=== PATIENT | male | born 1980 | race Caucasian/White ===

== ENCOUNTER 2017-10-05 09:10 | Emergency (ER) | payer OTHER ==
[~2017-10-05] VITALS: Ht 185.4 cm; Wt 118.0 kg
[~2017-10-05 09:10] MED LIST: AMOXICILLIN500 MG PO; BACTRIM DS1 TAB PO; CEPHALEXIN500 MG PO; DARVOCET N-100100 - OR; DOXYCYCL HYC100 MG PO; FLEXERIL PO; HYDROXYZ HCL25 MG PO; KEFLEX500 MG PO; LORTAB 5-325 MG1 TAB PO; MEDDOSEPAK PO; MEDROL4 M1 OR; NAPROSYN500 MG PO; NO HOME MEDS; NORCO1 TA1 PO; SILVADENE1 % EX; TRAMADOL HCL50 MG PO; ULTRAM50 M1 PO
[2017-10-05] MEDS ORDERED: TORADOL PO (11:01)
[2017-10-05 11:05] VITALS: BP 139/84
== END 2017-10-05 11:05 | disposition home or self-care (01) | DRG 605 ==
LOC: ED 09:10
DX: S00.532A Contusion of oral cavity, initial encounter (principal); F17.210 Nicotine dependence, cigarettes, uncomplicated; W20.8XXA Other cause of strike by thrown, projected or falling object, initial encounter; Y93.H2 Activity, gardening and landscaping

== ENCOUNTER 2018-06-16 14:57 | Emergency (ER) | payer SELFPAY ==
[~2018-06-16] VITALS: Ht 185.4 cm; Wt 91.0 kg
[~2018-06-16 14:57] MED LIST changes: +TORADOL PO
[2018-06-16] MEDS ORDERED: BACTROBAN TOP (16:13)
[2018-06-16 16:20] VITALS: BP 140/88
== END 2018-06-16 16:20 | disposition home or self-care (01) | DRG 603 ==
LOC: ED 14:57
DX: L02.11 Cutaneous abscess of neck (principal)

== ENCOUNTER 2018-07-08 12:17 | Emergency (ER) | payer SELFPAY ==
[~2018-07-08] VITALS: Ht 185.4 cm; Wt 90.0 kg
[~2018-07-08 12:17] MED LIST changes: +BACTROBAN TOP
[2018-07-08] MEDS ORDERED: MOTRIN400 MG PO (12:41)
[2018-07-08] MEDS ORDERED: PENICILLN VK500 M1 PO (12:41)
[2018-07-08 13:01] VITALS: BP 153/104
== END 2018-07-08 13:10 | disposition home or self-care (01) | DRG 159 ==
LOC: ED 12:17
DX: K08.89 Other specified disorders of teeth and supporting structures (principal)

== ENCOUNTER 2018-09-01 07:36 | Emergency (ER) | payer SELFPAY ==
[~2018-09-01] VITALS: Ht 185.4 cm; Wt 100.0 kg
[~2018-09-01 07:36] MED LIST changes: +MOTRIN400 MG PO; +PENICILLN VK500 M1 PO
[2018-09-01] MEDS ORDERED: BACTRIM DS1 TAB PO (09:29)
[2018-09-01] MEDS ORDERED: FLOXIN OTIC0.3 % AS (09:29)
[2018-09-01] MEDS ORDERED: CEPHALEXIN500 M1 PO (09:29)
[2018-09-01 10:03] VITALS: BP 124/90
== END 2018-09-01 10:04 | disposition home or self-care (01) | DRG 155 ==
LOC: ED 07:36
PROC: 0H91XZZ Drainage of Face Skin, External Approach (ICD-10-PCS; principal; 2018-09-01)
DX: H60.92 Unspecified otitis externa, left ear (principal); K12.2 Cellulitis and abscess of mouth; F17.210 Nicotine dependence, cigarettes, uncomplicated

== ENCOUNTER 2018-09-03 09:32 | Emergency (ER) | payer SELFPAY ==
[~2018-09-03] VITALS: Ht 185.4 cm; Wt 85.0 kg
[~2018-09-03 09:32] MED LIST changes: +CEPHALEXIN500 M1 PO; +FLOXIN OTIC0.3 % AS
[2018-09-03 10:45] VITALS: BP 132/89
[2018-09-05] MEDS ORDERED: NEOMYCIN/POLYMY1 SOL AS (11:51)
== END 2018-09-03 10:45 | disposition left against medical advice (07) | DRG 951 ==
LOC: ED 09:32
DX: Z91.19 Patient's noncompliance with other medical treatment and regimen (principal)

== ENCOUNTER 2019-01-29 19:27 | Emergency (ER) | payer OTHER ==
[~2019-01-29] VITALS: Ht 185.4 cm; Wt 86.0 kg
[~2019-01-29 19:27] MED LIST changes: +NEOMYCIN/POLYMY1 SOL AS
[2019-01-29] MEDS ORDERED: SILVADENE1 % EX (19:50)
[2019-01-29 20:02] VITALS: BP 140/82
[2019-01-30] MEDS ORDERED: SILVADENE1 % EX (14:39)
== END 2019-01-29 20:02 | disposition home or self-care (01) ==
LOC: ED 19:27
DX: T22.041A Burn of unspecified degree of right axilla, initial encounter (principal); F17.210 Nicotine dependence, cigarettes, uncomplicated; W39.XXXA Discharge of firework, initial encounter; Y93.89 Activity, other specified; Y92.009 Unspecified place in unspecified non-institutional (private) residence as the place of occurrence of the external cause

== ENCOUNTER 2019-02-24 16:53 | Emergency (ER) | payer OTHER ==
[~2019-02-24] VITALS: Ht 185.4 cm; Wt 86.4 kg
[2019-02-24 17:48] LABS: IMMATURE GRANULOCYTES 0.2 % (0.0-5.0); MEAN CELL VOLUME 88.6 fL CALC (80.0-100.0); MEAN CORPUSCULAR HGB 29.6 pG CALC (26.0-32.0); MEAN CORPUSCULAR HGB CONC 33.4 g/L CALC (32.0-36.0); NEUT# 5.61 thou/uL (1.82-7.42); RED BLOOD COUNT 5.17 mill/uL (4.70-6.10); RED CELL DISTRI WIDTH 13.4 % (11.5-15.5)
[2019-02-24 17:51] LABS: HEMATOCRIT 45.8 % (39.0-50.0); HEMOGLOBIN 15.3 g/dl (14.0-18.0)
[2019-02-24 18:02] LABS: ALKALINE PHOSPHATASE 102 u/l (38-126); BUN 19 mg/dL (9-20); BUN/CREATININE RATIO 16 (12-20 (CALC)); CHLORIDE 103 mmol/l (95-108); CREATININE 1.1 mg/dL (0.7-1.3); GFR > 60 ML/MIN (>=60 (CALC)); GFR FOR AFR.AMER. > 60 ML/MIN (>=60 (CALC)); LIPASE 28 u/l (23-300); SGOT/AST 19 u/l (17-59); SODIUM 138 mmol/l (137-146)
[2019-02-24 18:13] LABS: ALBUMIN 4.8 g/dL (3.2-5.0); ANION GAP 14 (6-22 (CALC)); BILIRUBIN, TOTAL 0.8 mg/dL (0.0-1.4); CARBON DIOXIDE 25 mmol/l (22-30); TOTAL PROTEIN 7.8 g/dL (6.3-8.2)
[2019-02-24 18:32] LABS: URINE BLOOD DIPSTICK TRACE-INTACT (NEGATIVE); URINE COLOR YELLOW; URINE GLUCOSE - DIPSTICK NEGATIVE (NEGATIVE); URINE KETONE TRACE mg/dL (NEGATIVE); URINE LEUK ESTERASE NEGATIVE (NEGATIVE); URINE NITRITE - DIPSTICK NEGATIVE (Negative); URINE PH 5.5 (4.5-8.0); URINE PROTEIN - DIPSTICK 30 mg/dL (NEG-TRACE); URINE SPECIFIC GRAVITY 1.025; URINE UROBILINOGEN - DIPSTICK 0.2 E.U./dL (0.2)
[2019-02-24 18:37] LABS: URINE BILIRUBIN - DIPSTICK NEGATIVE (NEGATIVE)
[2019-02-24 18:43] LABS: URINE RBC 0-2 RBC/hpf (0-5)
[2019-02-24 18:49] VITALS: BP 144/88
[2019-02-24] MEDS ORDERED: ONDANSETRON4 MG PO (18:49)
[2019-02-24] MEDS ORDERED: PREDNISONE50 MG PO (18:49)
== END 2019-02-24 18:57 | disposition home or self-care (01) ==
LOC: ED 16:53
PROVIDERS: Family Medicine
DX: K52.9 Noninfective gastroenteritis and colitis, unspecified (principal); R11.2 Nausea with vomiting, unspecified; T78.40XA Allergy, unspecified, initial encounter; R21 Rash and other nonspecific skin eruption; F17.210 Nicotine dependence, cigarettes, uncomplicated; R06.2 Wheezing

== ENCOUNTER 2019-03-26 12:20 | Emergency (ER) | payer OTHER ==
[~2019-03-26] VITALS: Ht 185.4 cm; Wt 90.9 kg
[~2019-03-26 12:20] MED LIST changes: +ONDANSETRON4 MG PO; +PREDNISONE50 MG PO
[2019-03-26 12:27] VITALS: BP 140/91
== END 2019-03-26 13:40 | disposition left against medical advice (07) ==
LOC: ED 12:20
DX: Z91.19 Patient's noncompliance with other medical treatment and regimen (principal)

== ENCOUNTER 2019-05-07 15:32 | Emergency (ER) | payer BC, OTHER ==
[~2019-05-07] VITALS: Ht 185.4 cm; Wt 95.0 kg
[2019-05-07] MEDS ORDERED: CEPHALEXIN500 M1 PO (16:58)
[2019-05-07] MEDS ORDERED: MUPIROCIN21 TOP (17:07)
[2019-05-07 17:16] VITALS: BP 137/91
== END 2019-05-07 17:25 | disposition home or self-care (01) | DRG 607 ==
LOC: ED 15:32
PROC: 0HBRXZZ Excision of Toe Nail, External Approach (ICD-10-PCS; principal; 2019-05-07)
DX: L60.0 Ingrowing nail (principal); F17.210 Nicotine dependence, cigarettes, uncomplicated

== ENCOUNTER 2019-06-04 17:31 | Emergency (ER) | payer BC, OTHER ==
[~2019-06-04] VITALS: Ht 185.4 cm; Wt 81.0 kg
[~2019-06-04 17:31] MED LIST changes: +MUPIROCIN21 TOP
[2019-06-04] MEDS ORDERED: NEXIUM5 MG PO (17:40)
[2019-06-04] MEDS ORDERED: AMOX/K CLAV875 M1 PO (18:14)
[2019-06-04 18:40] LABS: URINE BILIRUBIN - DIPSTICK NEGATIVE (NEGATIVE); URINE BLOOD DIPSTICK MODERATE (NEGATIVE); URINE COLOR YELLOW; URINE GLUCOSE - DIPSTICK NEGATIVE (NEGATIVE); URINE KETONE NEGATIVE (NEGATIVE); URINE NITRITE - DIPSTICK NEGATIVE (Negative); URINE PH 5.5 (4.5-8.0); URINE PROTEIN - DIPSTICK TRACE mg/dL (NEG-TRACE); URINE SPECIFIC GRAVITY >=1.030
[2019-06-04 18:50] LABS: URINE LEUK ESTERASE SMALL (NEGATIVE)
[2019-06-04] MEDS ORDERED: CEPHALEXIN500 M1 PO (18:52)
[2019-06-04 18:54] LABS: URINE WBC 50-100 WBC/hpf (0-5)
[2019-06-04 19:15] LABS: HEMATOCRIT 40.7 % (39.0-50.0); HEMOGLOBIN 13.4 g/dl (14.0-18.0); IMMATURE GRANULOCYTES 0.3 % (0.0-5.0); MEAN CELL VOLUME 88.5 fL CALC (80.0-100.0); MEAN CORPUSCULAR HGB 29.1 pG CALC (26.0-32.0); MEAN CORPUSCULAR HGB CONC 32.9 g/L CALC (32.0-36.0); NEUT# 7.55 thou/uL (1.82-7.42); RED BLOOD COUNT 4.6 mill/uL (4.70-6.10); RED CELL DISTRI WIDTH 13.1 % (11.5-15.5)
[2019-06-04 19:34] LABS: ANION GAP 13 (6-22 (CALC)); BUN 14 mg/dL (9-20); BUN/CREATININE RATIO 14 (12-20 (CALC)); CARBON DIOXIDE 24 mmol/l (22-30); CHLORIDE 104 mmol/l (95-108); GFR > 60 ML/MIN (>=60 (CALC)); GFR FOR AFR.AMER. > 60 ML/MIN (>=60 (CALC)); POTASSIUM 4.3 mmol/l (3.5-5.1); SODIUM 137 mmol/l (137-146)
[2019-06-04 21:26] VITALS: BP 153/77
== END 2019-06-04 21:26 | disposition home or self-care (01) | DRG 153 ==
LOC: ED 17:31
PROVIDERS: Family Medicine
DX: H66.92 Otitis media, unspecified, left ear (principal); N50.812 Left testicular pain

== ENCOUNTER 2019-08-15 | Emergency (ER) | payer BC, OTHER ==
[~2019-08-15] MED LIST changes: +AMOX/K CLAV875 M1 PO; +NEXIUM5 MG PO
[2019-08-15] MEDS ORDERED: PREDNISONE10 MG PO (10:26)
[2019-08-15] MEDS ORDERED: ARNUITY EL50 MCG/ACT IN (10:27)
[2019-08-15] MEDS ORDERED: IBUPROFEN600 MG PO (11:22)
== END 2019-08-15 11:35 | disposition home or self-care (01) | DRG 563 ==
DX: S93.402A Sprain of unspecified ligament of left ankle, initial encounter (principal); F17.210 Nicotine dependence, cigarettes, uncomplicated; W01.0XXA Fall on same level from slipping, tripping and stumbling without subsequent striking against object, initial encounter; Y93.89 Activity, other specified; Y92.89 Other specified places as the place of occurrence of the external cause; Y99.0 Civilian activity done for income or pay

== ENCOUNTER 2019-09-07 | Emergency (ER) | payer BC, OTHER ==
[~2019-09-07] MED LIST changes: +ARNUITY EL50 MCG/ACT IN; +IBUPROFEN600 MG PO; +PREDNISONE10 MG PO
== END 2019-09-07 17:20 | disposition home or self-care (01) | DRG 563 ==
DX: S93.402A Sprain of unspecified ligament of left ankle, initial encounter (principal); F17.210 Nicotine dependence, cigarettes, uncomplicated; X58.XXXA Exposure to other specified factors, initial encounter; Y93.89 Activity, other specified; Y92.89 Other specified places as the place of occurrence of the external cause; Y99.0 Civilian activity done for income or pay

== ENCOUNTER 2019-10-21 | Emergency (ER) | payer OTHER ==
[2019-10-21] MEDS ORDERED: HYDROCO/APAP1 TA9 PO (19:44)
[2019-10-21] MEDS ORDERED: CLINDAMYCIN300 M1 PO (19:44)
== END 2019-10-21 20:00 | disposition home or self-care (01) ==
DX: K04.7 Periapical abscess without sinus (principal); K02.9 Dental caries, unspecified; F17.200 Nicotine dependence, unspecified, uncomplicated

== ENCOUNTER 2019-12-30 16:37 | Emergency (ER) | payer OTHER ==
[~2019-12-30 16:37] MED LIST changes: +CLINDAMYCIN300 M1 PO; +HYDROCO/APAP1 TA9 PO
[2019-12-30 18:10] LABS: IMMATURE GRANULOCYTES 0.3 % (0.0-5.0); MEAN CELL VOLUME 85.6 fL CALC (80.0-100.0); MEAN CORPUSCULAR HGB 29.3 pG CALC (26.0-32.0); MEAN CORPUSCULAR HGB CONC 34.2 g/dL CAL (32.0-36.0); NEUT# 7.29 thou/uL (1.82-7.42); RED BLOOD COUNT 5.7 mill/uL (4.70-6.10)
[2019-12-30 18:12] LABS: HEMATOCRIT 48.8 % (39.0-50.0); HEMOGLOBIN 16.7 g/dl (14.0-18.0)
[2019-12-30 18:30] LABS: ACT PARTIAL THROMBO TIME 31.5 SECONDS (20.0-32.5); ALKALINE PHOSPHATASE 98 u/l (38-126); AMYLASE 129 u/l (30-110); ANION GAP 14 (6-22 (CALC)); BILIRUBIN, TOTAL 0.8 mg/dL (0.0-1.4); BUN 15 mg/dL (9-20); BUN/CREATININE RATIO 12 (12-20 (CALC)); CARBON DIOXIDE 24 mmol/l (22-30); CHLORIDE 103 mmol/l (95-108); CREATININE 1.2 mg/dL (0.7-1.3); D-DIMER 0.17 mg/L (0.19-0.60); GFR > 60 ML/MIN (>=60 (CALC)); GFR FOR AFR.AMER. > 60 ML/MIN (>=60 (CALC)); LIPASE 49 u/l (23-300); MAGNESIUM 2.2 mg/dL (1.6-2.3); POTASSIUM 3.8 mmol/l (3.5-5.1); PROTHROMBIN TIME 10.5 SECONDS (9.0-12.5); SGOT/AST 20 u/l (17-59); SODIUM 137 mmol/l (137-146); TOTAL PROTEIN 8.5 g/dL (6.3-8.2)
[2019-12-30 18:55] LABS: URINE BLOOD DIPSTICK NEGATIVE (NEGATIVE); URINE GLUCOSE - DIPSTICK NEGATIVE (NEGATIVE); URINE KETONE 15 mg/dL (NEGATIVE); URINE LEUK ESTERASE NEGATIVE (NEGATIVE); URINE NITRITE - DIPSTICK NEGATIVE (Negative); URINE PROTEIN - DIPSTICK 100 mg/dL (NEG-TRACE); URINE SPECIFIC GRAVITY >=1.030
[2019-12-30 19:01] LABS: URINE COLOR AMBER
[2019-12-30 19:02] LABS: URINE BILIRUBIN - DIPSTICK NEGATIVE (NEGATIVE)
[2019-12-30 19:03] LABS: URINE CALCIUM OXALATE CRYSTALS FEW lpf; URINE RBC 0-2 RBC/hpf (0-5); URINE WBC 0-2 WBC/hpf (0-5)
[2019-12-30 19:24] VITALS: BP 138/88
[2019-12-30] MEDS ORDERED: LOMOTIL2.5 MG PO (20:00)
== END 2019-12-30 20:15 | disposition home or self-care (01) ==
LOC: ED 16:37
DX: A08.4 Viral intestinal infection, unspecified (principal); R07.9 Chest pain, unspecified; F17.200 Nicotine dependence, unspecified, uncomplicated; Z20.828 Contact with and (suspected) exposure to other viral communicable diseases
CPT/HCPCS: Q9967

== ENCOUNTER 2020-10-31 07:29 | Emergency (ER) | payer OTHER ==
[~2020-10-31 07:29] MED LIST changes: +LOMOTIL2.5 MG PO
[2020-10-31 07:50] VITALS: BP 160/84
== END 2020-10-31 08:28 | disposition home or self-care (01) ==
LOC: ED 07:29
DX: K64.5 Perianal venous thrombosis (principal); F17.200 Nicotine dependence, unspecified, uncomplicated